=== PATIENT | female | born 1965 | race Caucasian/White ===

== ENCOUNTER 2017-05-12 14:54 | Emergency (ER) | payer SELFPAY ==
[~2017-05-12] VITALS: Ht 162.6 cm; Wt 61.3 kg
[2017-05-12 16:22] LABS: HEMATOCRIT 43.4 % (36.0-46.0); MCH 32.7 PG (29.0-34.0); MCHC 34.1 G/DL (30.0-36.0); MCV 95.8 FL (83-99); PLATELET COUNT 199 K/uL (156-360); RBC DIS.WIDTH-CV 11.4 % (11.8-14.6); RBC DIS.WIDTH-SD 40.2 % (39-53); RED BLOOD COUNT 4.53 M/uL (3.80-5.20); WHITE BLOOD COUNT 10.5 K/uL (4.1-10.2)
[2017-05-12 16:33] LABS: ADD MIUA? YES; BILIRUBIN NEGATIVE; BLOOD MODERATE; COLOR YELLOW ((YELLOW)); GLUCOSE (STRIP) NEGATIVE; KETONES 20; LEUKOCYTES SMALL; NITRITE NEGATIVE; PROTEIN (STRIP) 30; SPECIFIC GRAVITY 1.018 (1.000-1.030); UROBILINOGEN 0.2 MG/DL (0.2-1.0)
[2017-05-12 16:41] LABS: CHLORIDE 105 mEq/L (99-109); POTASSIUM 3.9 mEq/L (3.7-5.4); SODIUM 140 mEq/L (136-147)
[2017-05-12 16:41] LABS: BACTERIA NONE SEEN /HPF; EPITHELIAL CELLS RARE /HPF; MUCUS 2+ /LPF; RED BLOOD CELLS 20-30 /HPF (0-5); UCUL ADDED? YES
[2017-05-12 16:43] LABS: GLUCOSE 98 mg/dL (70-99)
[2017-05-12 16:44] LABS: ANION GAP 18 MEQ/L (2-14)
[2017-05-12 16:45] LABS: TOTAL BILIRUBIN 0.7 mg/dL (0.0-1.0)
[2017-05-12 16:46] LABS: ALKALINE PHOSPHATASE 120 IU/L (3-129)
[2017-05-12 16:47] LABS: GFR ESTIMATE (CALCULATED) > 59 mL/min/
[2017-05-12 16:48] LABS: UREA NITROGEN (BUN) 18 mg/dL (9-23)
[2017-05-12 16:56] LABS: QUANTITATIVE HCG < 4.0 MIU/ML
[2017-05-12 17:45] LABS: LIPASE 5 U/L (1.0-51.0)
[2017-05-12] MEDS ORDERED: PERCOCET 5/31 TABLET PO (20:48)
[2017-05-12] MEDS ORDERED: MOTRIN600 MG PO (20:48)
[2017-05-12 21:23] VITALS: BP 145/81
[2017-05-13] MEDS ORDERED: PROMETHAZINE HC25 M1 PO (17:16)
== END 2017-05-12 21:27 | disposition home or self-care (01) ==
LOC: EME 14:54
PROVIDERS: Nurse Practitioner Family
DX: N13.2 Hydronephrosis with renal and ureteral calculous obstruction (principal); I10 Essential (primary) hypertension; F41.9 Anxiety disorder, unspecified
CPT/HCPCS: 74176; 80053; 81003; 83690; 84702; 85027; 87086; 99281; 99285; J1885; J7030

== ENCOUNTER 2017-05-13 13:37 | Emergency (ER) | payer SELFPAY ==
[~2017-05-13] VITALS: Ht 162.6 cm; Wt 61.1 kg
[~2017-05-13 13:37] MED LIST: MOTRIN600 MG PO; PERCOCET 5/31 TABLET PO
[2017-05-13 14:23] LABS: HEMATOCRIT 39.4 % (36.0-46.0); MCH 32.9 PG (29.0-34.0); MCHC 34.3 G/DL (30.0-36.0); MCV 96.1 FL (83-99); MEAN PLAT.VOLUME 10.2 uM^3 (9.5-12.4); PLATELET COUNT 207 K/uL (156-360); RBC DIS.WIDTH-CV 11.4 % (11.8-14.6); RBC DIS.WIDTH-SD 40.5 % (39-53); WHITE BLOOD COUNT 11.3 K/uL (4.1-10.2)
[2017-05-13 14:31] LABS: CHLORIDE 106 mEq/L (99-109); SODIUM 140 mEq/L (136-147)
[2017-05-13 14:33] LABS: GLUCOSE 103 mg/dL (70-99)
[2017-05-13 14:34] LABS: ANION GAP 9 MEQ/L (2-14)
[2017-05-13 14:37] LABS: GFR ESTIMATE (CALCULATED) > 59 mL/min/; UREA NITROGEN (BUN) 17 mg/dL (9-23)
[2017-05-13 15:02] LABS: ADD MIUA? YES; BILIRUBIN NEGATIVE; BLOOD MODERATE; COLOR AMBER ((YELLOW)); GLUCOSE (STRIP) NEGATIVE; KETONES 80; LEUKOCYTES TRACE; NITRITE NEGATIVE; PROTEIN (STRIP) 100; SPECIFIC GRAVITY 1.036 (1.000-1.030); UROBILINOGEN 0.2 MG/DL (0.2-1.0)
[2017-05-13 15:13] LABS: BACTERIA RARE /HPF; CALCIUM OXALATE CRYSTALS 4+ /HPF; EPITHELIAL CELLS 2+ /HPF; MUCUS 3+ /LPF; RED BLOOD CELLS 30-40 /HPF (0-5); UCUL ADDED? YES
[2017-05-13] MEDS ORDERED: PROMETHAZINE HC25 M1 PO (17:16)
[2017-05-13 17:47] VITALS: BP 151/88
== END 2017-05-13 17:53 | disposition home or self-care (01) ==
LOC: EME 13:37
DX: N20.0 Calculus of kidney (principal); I10 Essential (primary) hypertension; Z87.442 Personal history of urinary calculi
CPT/HCPCS: 80048; 81003; 85027; 87086; 99281; 99284; J1885; J2405; J7030

== ENCOUNTER 2017-11-11 13:44 | Emergency (ER) | payer BC, OTHER ==
[~2017-11-11] VITALS: Ht 157.5 cm; Wt 62.8 kg
[~2017-11-11 13:44] MED LIST changes: +PROMETHAZINE HC25 M1 PO
[2017-11-11 14:06] LABS: HEMATOCRIT 37.7 % (36.0-46.0); MCH 33.8 PG (29.0-34.0); MCHC 34.5 G/DL (30.0-36.0); MCV 97.9 FL (83-99); PLATELET COUNT 254 K/uL (156-360); RBC DIS.WIDTH-CV 11.8 % (11.8-14.6); RBC DIS.WIDTH-SD 42.5 % (39-53); RED BLOOD COUNT 3.85 M/uL (3.80-5.20); WHITE BLOOD COUNT 12.6 K/uL (4.1-10.2)
[2017-11-11 14:14] LABS: CHLORIDE 102 mEq/L (99-109); POTASSIUM 3.7 mEq/L (3.7-5.4); SODIUM 140 mEq/L (136-147)
[2017-11-11 14:17] LABS: GLUCOSE 146 mg/dL (70-99); TOTAL PROTEIN 7.1 g/dL (6.4-8.3)
[2017-11-11 14:19] LABS: TOTAL BILIRUBIN 0.4 mg/dL (0.0-1.0)
[2017-11-11 14:20] LABS: ALKALINE PHOSPHATASE 129 IU/L (3-129); CREATININE 0.7 mg/dL (0.6-1.3); GFR ESTIMATE (CALCULATED) > 59 mL/min/
[2017-11-11 14:21] LABS: UREA NITROGEN (BUN) 10 mg/dL (9-23)
[2017-11-11 14:22] LABS: AST (GOT) 16 IU/L (2-34)
[2017-11-11 14:23] LABS: ALT (GPT) 30 IU/L (3-49)
[2017-11-11 14:30] LABS: QUANTITATIVE HCG < 4.0 MIU/ML
[2017-11-11 15:31] LABS: APPEARANCE SL.HAZY ((CLEAR)); BILIRUBIN NEGATIVE; BLOOD MODERATE; COLOR AMBER ((YELLOW)); GLUCOSE (STRIP) NEGATIVE; KETONES 5; LEUKOCYTES NEGATIVE; NITRITE NEGATIVE; PROTEIN (STRIP) 100; UROBILINOGEN 0.2 MG/DL (0.2-1.0)
[2017-11-11 15:40] LABS: BACTERIA NONE SEEN /HPF; CALCIUM OXALATE CRYSTALS 2+ /HPF; EPITHELIAL CELLS 1+ /HPF; MUCUS 4+ /LPF; RED BLOOD CELLS 40-50 /HPF (0-5); UCUL ADDED? NO; WHITE BLOOD CELLS 0-5 /HPF (0-5)
[2017-11-11] MEDS ORDERED: ZITHROMAX500 MG PO (16:50)
[2017-11-11] MEDS ORDERED: ZOFRAN ODT4 MG PO (16:51)
[2017-11-11] MEDS ORDERED: BENTYL10 MG PO (16:51)
[2017-11-11 17:11] VITALS: BP 145/96
== END 2017-11-11 17:16 | disposition home or self-care (01) ==
LOC: EME 13:44
DX: K52.9 Noninfective gastroenteritis and colitis, unspecified (principal); J18.9 Pneumonia, unspecified organism; F17.200 Nicotine dependence, unspecified, uncomplicated; I10 Essential (primary) hypertension; F41.9 Anxiety disorder, unspecified; G89.29 Other chronic pain; Z90.10 Acquired absence of unspecified breast and nipple
CPT/HCPCS: 74177; 80053; 81003; 84702; 85027; 99281; 99285; J7030